=== PATIENT | female | born 1990 | race African-American/Black ===

== ENCOUNTER 2022-10-29 15:51 | Outpatient (CLI) | payer OTHER ==
[2022-10-29 18:22] LABS: BILIRUBIN,URINE NEGATIVE (NEGATIVE); GLUCOSE, URINE (UA) NEGATIVE (NEGATIVE); KETONES,URINE (UA) NEGATIVE (NEGATIVE); LEUKOCYTE ESTERASE, URINE NEGATIVE (NEGATIVE); NITRITE,URINE NEGATIVE (NEGATIVE); OCCULT BLOOD,URINE NEGATIVE (NEGATIVE); PROTEIN,URINE NEGATIVE (NEGATIVE); UROBILINOGEN,URINE 0.2 (NORMAL) E.U./dL (NORMAL)
[2022-10-29 18:28] LABS: CLARITY,URINE CLEAR (CLEAR)
[2022-10-29 18:45] LABS: BACTERIA,URINE Few /HPF (None Seen); RBC,URINE 0-5 /HPF (0-5); SQUAMOUS EPITHELIAL CELL,UR MOD Squamous (<= Few); WBC,URINE 0-3 /HPF (0-5)
[2022-10-29 20:39] LABS: BASOPHILS % (AUTO) 0.2 %; EOSINOPHILS # (AUTO) 0.1 10^3/uL (0.0-0.7); HCT - HEMATOCRIT 36.3 % (37.0-47.0); HGB - HEMOGLOBIN 11.7 g/dL (12.0-16.0); LYMPHOCYTES % (AUTO) 40.8 %; MEAN CORPUSCULAR HEMOGLOBIN 29.3 pg (27.0-31.0); MEAN CORPUSCULAR HGB CONC 32.2 g/dL (32.0-36.0); MEAN PLATELET VOLUME 9.7 fL (7.9-10.8); MONOCYTES # (AUTO) 0.4 10^3/uL (0.0-1.0); MONOCYTES % (AUTO) 8.5 %; NEUTROPHILS # (AUTO) 2.4 10^3/uL (1.5-6.6); NEUTROPHILS % (AUTO) 49.1 %; PLT - PLATELET COUNT 306 10^3/uL (130-450); RED BLOOD COUNT 3.99 10^6/uL (4.20-5.40); RED CELL DISTRIBUTION WIDTH 13.9 % (12.0-15.0); WHITE BLOOD COUNT 4.9 x10^3/uL (4.8-10.8)
[2022-10-31 04:09] LABS: HBsAG SCREEN Negative (Negative); HCV AB <0.1 s/co ratio (0.0-0.9)
[2022-10-31 06:10] LABS: RPR Non Reactive (Non Reactive)
[2022-10-31 07:10] LABS: HIV SCREEN 4TH GENERATION Non Reactive (Non Reactive); VARICELLA-ZOSTER AB IGG 1046 index (Immune >165)
== END 2022-10-29 15:52 | disposition home or self-care (01) ==
LOC: LAB.N 15:51
PROVIDERS: ATTEND Obstetrics & Gynecology
DX: Z34.90 Encounter for supervision of normal pregnancy, unspecified, unspecified trimester (principal)
CPT/HCPCS: 36415; 81001; 85025; 86592; 86762; 86787; 86803; 86850; 86900; 86901; 87086; 87340; 87389

== ENCOUNTER 2022-11-08 16:47 | Outpatient (CLI) | payer OTHER ==
--- NOTE | 2022-11-12 08:56 | Ultrasound Report ---
PROCEDURE: OB First Trimester INDICATIONS: POSITIVE TEST OUTSIDE/PRIOR DATING DATA: Last menstrual period (LMP): 08/05/2022. LMP-based estimated date of delivery (VIANNEY): 05/12/2023. The below data below was generated using the working VIANNEY of 05/04/2023 TECHNIQUE: Real-time scanning was performed of the fetus and maternal pelvic organs, with image documentation. COMPARISON: None. FINDINGS: Single living intrauterine gestation with crown-rump length of 8.4 cm. This corresponds to gestational age of 14 weeks two days. Estimated weight is 102 g, 96th percentile. IMPRESSION: Single living intrauterine gestation with estimated gestational age of 14 weeks two days and estimate d weight at the 96th percentile. Reviewed by: Dalton Aleman MD on 11/12/2022 8:54 AM PST Approved by: Dalton Aleman MD on 11/12/2022 8:54 AM PST Station ID: [id number]
== END 2022-11-08 16:48 | disposition home or self-care (01) ==
LOC: DI 16:47
PROVIDERS: ATTEND Obstetrics & Gynecology
DX: Z34.92 Encounter for supervision of normal pregnancy, unspecified, second trimester (principal); Z3A.14 14 weeks gestation of pregnancy

== ENCOUNTER 2022-11-18 13:00 | Outpatient (CLI) | payer OTHER ==
[2022-11-18 20:16] LABS: CHLAMYDIA TRACHOMATIS DNA NEGATIVE (NEGATIVE); NEISSERIA GONORRHOEAE DNA NEGATIVE (NEGATIVE); TRICHOMONAS VAGINALIS DNA NEGATIVE (NEGATIVE)
== END 2022-11-18 23:59 | disposition home or self-care (01) ==
LOC: LAB 13:00
PROVIDERS: ATTEND Obstetrics & Gynecology
DX: Z11.3 Encounter for screening for infections with a predominantly sexual mode of transmission (principal)
CPT/HCPCS: 87491; 87591; 87661

== ENCOUNTER 2022-12-06 14:12 | Outpatient (CLI) | payer OTHER ==
[2022-12-10 19:07] LABS: AFP MOM See interpretation. (.); AFP VALUE 60.1 ng/mL (.); DIA MOM See interpretation. (.); DIA VALUE 65.64 pg/mL (.); DSR (BY AGE) 1 IN 382 (.); DSR (SECOND TRIMESTER) 1 IN See interpretation. (.); GESTAT. AGE METHOD Ultrasound (.); HCG MOM See interpretation. (.); HCG VALUE 11136 mIU/mL (.); MATERNAL AGE AT EDD 33.8 yr (.); MULTIPLE GESTATION No (.); OPEN SPINA BIFIDA RISK 1 IN See interpretation. (.); RACE Black (.); RESULTS Report (.); TEST RESULTS See interpretation. (.); TRISOMY 18 RISK See interpretation. (.); UE3 MOM See interpretation. (.); UE3 VALUE 2.29 ng/mL (.); WEIGHT 152 lbs (.)
== END 2022-12-06 14:13 | disposition home or self-care (01) ==
LOC: LAB 14:12
PROVIDERS: ATTEND Obstetrics & Gynecology
DX: Z34.90 Encounter for supervision of normal pregnancy, unspecified, unspecified trimester (principal)
CPT/HCPCS: 36415; 81511

== ENCOUNTER 2022-12-18 18:41 | Outpatient (CLI) | payer OTHER ==
--- NOTE | 2022-12-19 15:47 | Ultrasound Report ---
PROCEDURE: OB Detailed Eval INDICATIONS: SUPERVISION OF OUTSIDE/PRIOR DATING DATA: Last menstrual period (LMP): 08/05/2022. LMP-based estimated date of delivery (VIANNEY): 05/12/2023. First dating scan (date and location): 11/08/2022. Estimated date of delivery (VIANNEY) from first dating scan: 05/04/2023. TECHNIQUE: Real-time scanning was performed of the fetus, with image documentation and biometric measurements. COMPARISON: 11/08/2022 FINDINGS: General: A single living intrauterine gestation is present. Presentation: Variable Placenta: Placental position is anterior, without previa. Amniotic fluid index: 16.4 cm, within normal limits for gestational age. LACI measures 4.9 cm heart rate: 152 beats per minute. Maternal cervical canal: 3.7 cm long; normal length is 2.5 cm or more. biometrics: Biparietal diameter: 4.7 cm 20 weeks 1 day Head circumference: 17.5 cm 20 weeks 0 days Abdominal circumference: 16.5 cm 21 weeks 6 days Femur length: 3.3 cm 20 weeks 2 days Estimated gestational age from initial scan: 20 weeks 3 days Composite gestational age from present scan: 20 weeks 2 days Estimated weight and percentile: 379 g 67th percentile Measurement variability in biometric dating: +/- 10 days from 12-20 weeks gestation, +/- 2 weeks from 20-30 weeks gestation, +/- 3 weeks at 30 weeks gestation or later. Anatomic survey: Neuro: Ventricles are normal at less than 10 mm. Cisterna magna is normal at 3-11 mm. Cerebellum i s normal in size and morphology. Nuchal skin fold: Normal at less than 6 mm between 14 and 20 weeks gestational age. Face: Nose and lips, facial profile are normal. Spine: No evidence for spina bifida. Heart: 4-chambered heart is present, with normal ventricular outflow tracts. Diaphragm: Diaphragm is intact. Stomach: Left-sided stomach is present. Kidneys: No hydronephrosis. Normal is less than 5 mm in 2nd trimester, less than 7 mm in 3rd trimester. Cord: 3 vessel cord has orthotopic insertion. Bladder: Normal in size. Extremities: All 4 extremities are visualized. IMPRESSION: Single live intrauterine with ultrasound gestational age today of 20 weeks 2 days. Anatomy is within normal limits. Reviewed by: Pam Mendoza MD on 12/19/2022 3:46 PM PST Approved by: Pam Mendoza MD on 12/19/2022 3:46 PM PST Station ID: [id number]
== END 2022-12-18 18:42 | disposition home or self-care (01) ==
LOC: DI 18:41
PROVIDERS: ATTEND Obstetrics & Gynecology
DX: Z34.92 Encounter for supervision of normal pregnancy, unspecified, second trimester (principal); Z3A.20 20 weeks gestation of pregnancy

== ENCOUNTER 2023-01-31 15:31 | Outpatient (CLI) | payer OTHER ==
[2023-01-31 20:30] LABS: HCT - HEMATOCRIT 37.4 % (37.0-47.0); HGB - HEMOGLOBIN 12.1 g/dL (12.0-16.0); MEAN CORPUSCULAR HEMOGLOBIN 30.6 pg (27.0-31.0); MEAN CORPUSCULAR HGB CONC 32.4 g/dL (32.0-36.0); MEAN CORPUSCULAR VOLUME 94.4 fL (81.0-99.0); RED BLOOD COUNT 3.96 10^6/uL (4.20-5.40); RED CELL DISTRIBUTION WIDTH 12.8 % (12.0-15.0); WHITE BLOOD COUNT 7.8 x10^3/uL (4.8-10.8)
== END 2023-01-31 15:32 | disposition home or self-care (01) ==
LOC: LAB.N 15:31
PROVIDERS: ATTEND Obstetrics & Gynecology
DX: Z34.90 Encounter for supervision of normal pregnancy, unspecified, unspecified trimester (principal)
CPT/HCPCS: 36415; 82950; 85027

== ENCOUNTER 2023-04-18 08:00 | Outpatient (CLI) | payer OTHER | END 2023-04-18 23:59 | disposition home or self-care (01) | LOC: LAB.WC 08:00 | PROVIDERS: ATTEND Obstetrics & Gynecology | DX: Z34.90 Encounter for supervision of normal pregnancy, unspecified, unspecified trimester (principal) | CPT/HCPCS: 87797 ==

== ENCOUNTER 2023-04-21 17:55 | Inpatient (IN) | payer OTHER ==
[2023-04-21] MEDS ORDERED: miSOPROStoL 200 MCG TABLET PR PRN (19:17)
[2023-04-21] MEDS ORDERED: TRANEXAMIC ACID IN NACL 1,000 MG/100 ML BAG IV PRN (19:17)
[2023-04-21] MEDS ORDERED: hydrALAZINE INJ 20 MG/ML VIAL IVP PRN ×2 (19:17)
[2023-04-21] MEDS ORDERED: LABETALOL 20 MG/4 ML SYRINGE IVP PRN ×3 (19:17)
[2023-04-21] MEDS ORDERED: OXYTOCIN/SODIUM CHLORIDE 500 ML IV PRN (19:17)
[2023-04-21] MEDS ORDERED: TERBUTALINE 1 MG/ML VIAL SUBQ PRN (19:17)
[2023-04-21] MEDS ORDERED: OXYTOCIN 10 UNIT/ML VIAL IM PRN (19:17)
[2023-04-21] MEDS ORDERED: fentaNYL 100 MCG/2 ML VIAL IVP PRN (19:17)
[2023-04-21] MEDS ORDERED: CARBOPROST TROMETHAMINE 250 MCG/ML AMP IM PRN (19:17)
[2023-04-21] MEDS ORDERED: SODIUM CHLORIDE FLUSH 0.9% 10 ML SYRINGE IVP PRN (19:17)
[2023-04-21] MEDS ORDERED: NIFEdipine 10 MG CAPSULE PO PRN (19:17)
[2023-04-21] MEDS ORDERED: miSOPROStoL 200 MCG TABLET BC PRN (19:17)
[2023-04-21] MEDS ORDERED: METHYLERGONOVINE 0.2 MG/ML VIAL IM PRN (19:17)
[2023-04-21] MEDS ORDERED: lidocaine 1% 20 ML MDV ID PRN (19:17)
[2023-04-21 19:28] LABS: BASOPHILS % (AUTO) 0.1 %; EOSINOPHILS % (AUTO) 0.1 %; HCT - HEMATOCRIT 40.2 % (37.0-47.0); HGB - HEMOGLOBIN 13.3 g/dL (12.0-16.0); LYMPHOCYTES # (AUTO) 1.8 10^3/uL (1.5-3.5); LYMPHOCYTES % (AUTO) 24.4 %; MEAN CORPUSCULAR HEMOGLOBIN 30.2 pg (27.0-31.0); MEAN CORPUSCULAR HGB CONC 33.1 g/dL (32.0-36.0); MEAN CORPUSCULAR VOLUME 91.2 fL (81.0-99.0); MEAN PLATELET VOLUME 10.3 fL (7.9-10.8); MONOCYTES # (AUTO) 0.6 10^3/uL (0.0-1.0); MONOCYTES % (AUTO) 8.7 %; NEUTROPHILS # (AUTO) 4.8 10^3/uL (1.5-6.6); NEUTROPHILS % (AUTO) 66.3 %; PLT - PLATELET COUNT 334 10^3/uL (130-450); RED BLOOD COUNT 4.41 10^6/uL (4.20-5.40); RED CELL DISTRIBUTION WIDTH 13.2 % (12.0-15.0); WHITE BLOOD COUNT 7.3 x10^3/uL (4.8-10.8)
[2023-04-21 20:05] LABS: ALBUMIN 3.3 g/dL (3.2-5.5); BILIRUBIN,TOTAL 0.5 mg/dL (0.2-1.0); CALCIUM 10.1 mg/dL (8.5-10.3); CREATININE 1.6 mg/dL (0.4-1.0); POTASSIUM 4.4 mmol/L (3.5-5.0); TOTAL PROTEIN 6.7 g/dL (6.7-8.2)
--- NOTE | 2023-04-21 20:19 | HISTORY & PHYSICAL EXAMINATION ---
Admit History - Visit Reason Visit Reason: Contractions, Other (induction for gestational hypertension) - : 3 Parity: 2 Care: positive: [facility] Risk/History: positive: None Complications This : positive: induced HTN Smoking Status: Never smoker - Mother's Labs Mother's Blood Type: positive: O Mother's RH: positive: Positive GBS: positive: Group B Step Negative Rubella Status: positive: Immune (first 2 babies were born in [facility]. uncomplicated and unmedicated. 4 kg and 3.5 kg.) - HPI Diagnosis/Indication for NST: Gestational Hypertension Current EDU 05/05/23 Gestation 38 Weeks and 0 Days 3 Vital Signs Temperature 99.4 F 04/21/23 18:32 Heart Rate 102 H 04/21/23 18:32 Respiratory Rate 16 04/21/23 18:32 Blood Pressure 144/94 H 04/21/23 18:32 Temperature 99.4 F 04/21/23 18:32 Heart Rate 102 H 04/21/23 18:32 Respiratory Rate 16 04/21/23 18:32 Blood Pressure 144/94 H 04/21/23 18:32 O2 Saturation If not protocol: Oxygen Flow, liters/minute Meds/Allgy - Allergies Allergies/Adverse Reactions: Allergies Allergy/AdvReac Type Severity Reaction Status Date / Time No Known Drug Allergies Allergy Verified 04/21/23 18:31 Review of Systems - Other Findings Other Findings: no headache, nausea, vomiting. good movement. no contractions. no leaking of fluid. Physical - Abdominal Exam Vital Signs: Temp Pulse Resp BP Pulse Ox O2 Flow Rate 99.4 F 102 H 16 144/94 H 04/21/23 18:32 04/21/23 18:32 04/21/23 18:32 04/21/23 18:32 Contraction Frequency (min/apart): irreg Contraction Intensity: positive: Mild Uterine Resting Tone: positive: Soft - Monitoring Strip Review: positive: Category I - Presentation Presentation: positive: Vertex - Vaginal Exam Membranes: positive: Membranes intact Dilation (in cm): 4 Effacement (%): 80 Station: positive: Ballotable Cervical Position: positive: Posterior - Speculum Exam Speculum Exam Performed: positive: No Plan for Labor - Plan For Labor Plan for Labor: Admit for gestational hypertension and induction of labor with pitocin. baby is too high for SROM. No signs or sx of Preeclampsia. labs normal. had never had epidural, likely will want natural labor but also has never been induced before. process discussed. consent signed.
[2023-04-21 20:20] LABS: CREATININE,URINE 133.9 mg/dL; PROTEIN/CREATININE RATIO,URINE 0.1 (<=0.2)
[2023-04-21] MEDS ORDERED: LACTATED RINGERS 1,000 ML ONE (20:46)
[2023-04-21] MEDS: LACTATED RINGERS 1,000 ML IV SCH (20:59)
[2023-04-21] MEDS ORDERED: OXYTOCIN/SODIUM CHLORIDE 500 ML IV SCH (21:00)
[2023-04-21] MEDS ORDERED: MAGNESIUM SULFATE 4 GRAM 4 GM/50 ML BAG IV ONE (21:10)
[2023-04-21 22:23] LABS: CREATININE 1.3 mg/dL (0.4-1.0)
[2023-04-21] MEDS: MAGNESIUM SULFATE IN WATER 20 GM/500 ML IV.SOLN IV SCH (23:08)
[2023-04-22 03:15] LABS: ALBUMIN 3.1 g/dL (3.2-5.5); ALBUMIN/GLOBULIN RATIO 0.9 (1.0-2.2); BILIRUBIN,TOTAL 0.7 mg/dL (0.2-1.0); CALCIUM 8.6 mg/dL (8.5-10.3); CREATININE 0.8 mg/dL (0.4-1.0); MAGNESIUM 3.5 mg/dL (1.7-2.8); POTASSIUM 3.8 mmol/L (3.5-5.0); TOTAL PROTEIN 6.4 g/dL (6.7-8.2)
[2023-04-22] MEDS: MAGNESIUM SULFATE IN WATER 20 GM/500 ML IV.SOLN IV SCH ×2 (08:04→17:19)
[2023-04-22] MEDS: SODIUM CHLORIDE FLUSH 0.9% 10 ML SYRINGE IVP SCH (08:04)
[2023-04-22] MEDS: ACETAMINOPHEN 325 MG TABLET PO PRN ×2 (08:20→20:00)
--- NOTE | 2023-04-22 09:28 | PROVIDER PROGRESS NOTE ---
Subjective - Prog Note Date Prog Note Date: 04/22/23 Prog Note Time: 09:26 - Subjective Subjective: More painful with contractions. when asked says that she has a headache and would like some tylenol. magnesium at 1, pitocin at 20, ivf at 50. had some nausea after I broke her water but did not vomit. Objective - Vital Signs/Intake & Output Reviewed Vital Signs: Yes Intake & Output: Intake & Output 04/19/23 04/20/23 04/21/23 04/22/23 23:59 23:59 23:59 23:59 Intake Total 156.366 897.501 Output Total 300 781 Balance -143.634 116.501 - Objective Comments/Other: cervix /-1. baby's head is way down since I checked her last night. AROM and clear fluid. - Lab Results Fish Bones: 04/21/23 18:25 04/22/23 02:57 Other Labs: Lab Results x24hrs 04/22/23 04/21/23 04/21/23 Range/Units 02:57 21:30 19:48 WBC (4.8-10.8) x10^3/uL RBC (4.20-5.40) 10^6/uL Hgb (12.0-16.0) g/dL Hct (37.0-47.0) % MCV (81.0-99.0) fL MCH (27.0-31.0) pg MCHC (32.0-36.0) g/dL RDW (12.0-15.0) % Plt Count (130-450) 10^3/uL MPV (7.9-10.8) fL Neut # (Auto) (1.5-6.6) 10^3/uL Lymph # (Auto) (1.5-3.5) 10^3/uL [place] # (Auto) (0.0-1.0) 10^3/uL Eos # (Auto) (0.0-0.7) 10^3/uL Baso # (Auto) (0.0-0.1) 10^3/uL Absolute Nucleated RBC x10^3/uL Nucleated RBC % /100WBC Sodium 136 136 (135-145) mmol/L Potassium 3.8 4.4 (3.5-5.0) mmol/L Chloride 103 105 (101-111) mmol/L Carbon Dioxide 20 L 22 (21-32) mmol/L Anion Gap 13.0 9.0 (6-13) BUN 13 13 (6-20) mg/dL Creatinine 0.8 1.3 H 1.6 H (0.4-1.0) mg/dL Estimated GFR (MDRD) 100 57 L 45 L (>89) Glucose 99 108 H (70-100) mg/dL Calcium 8.6 10.1 (8.5-10.3) mg/dL Magnesium 3.5 H (1.7-2.8) mg/dL Total Bilirubin 0.7 0.5 (0.2-1.0) mg/dL AST 18 20 (10-42) IU/L ALT 16 14 (10-60) IU/L Alkaline Phosphatase 101 104 (42-121) IU/L Total Protein 6.4 L 6.7 (6.7-8.2) g/dL Albumin 3.1 L 3.3 (3.2-5.5) g/dL Globulin 3.3 3.4 (2.1-4.2) g/dL Albumin/Globulin Ratio 0.9 L 1.0 (1.0-2.2) Urine Creatinine mg/dL Ur Total Protein Timed mg/dL Protein/Creatinin Ratio (<=0.2) Blood Type Antibody Screen 04/21/23 04/21/23 04/21/23 Range/Units 18:30 18:25 18:25 WBC 7.3 (4.8-10.8) x10^3/uL RBC 4.41 (4.20-5.40) 10^6/uL Hgb 13.3 (12.0-16.0) g/dL Hct 40.2 (37.0-47.0) % MCV 91.2 (81.0-99.0) fL MCH 30.2 (27.0-31.0) pg MCHC 33.1 (32.0-36.0) g/dL RDW 13.2 (12.0-15.0) % Plt Count 334 (130-450) 10^3/uL MPV 10.3 (7.9-10.8) fL Neut # (Auto) 4.8 (1.5-6.6) 10^3/uL Lymph # (Auto) 1.8 (1.5-3.5) 10^3/uL [place] # (Auto) 0.6 (0.0-1.0) 10^3/uL Eos # (Auto) 0.0 (0.0-0.7) 10^3/uL Baso # (Auto) 0.0 (0.0-0.1) 10^3/uL Absolute Nucleated RBC 0.00 x10^3/uL Nucleated RBC % 0.0 /100WBC Sodium (135-145) mmol/L Potassium (3.5-5.0) mmol/L Chloride (101-111) mmol/L Carbon Dioxide (21-32) mmol/L Anion Gap (6-13) BUN (6-20) mg/dL Creatinine (0.4-1.0) mg/dL Estimated GFR (MDRD) (>89) Glucose (70-100) mg/dL Calcium (8.5-10.3) mg/dL Magnesium (1.7-2.8) mg/dL Total Bilirubin (0.2-1.0) mg/dL AST (10-42) IU/L ALT (10-60) IU/L Alkaline Phosphatase (42-121) IU/L Total Protein (6.7-8.2) g/dL Albumin (3.2-5.5) g/dL Globulin (2.1-4.2) g/dL Albumin/Globulin Ratio (1.0-2.2) Urine Creatinine 133.9 mg/dL Ur Total Protein Timed 8 mg/dL Protein/Creatinin Ratio 0.1 (<=0.2) Blood Type O POSITIVE Antibody Screen NEGATIVE Assessment/Plan - Problem List (1) Preeclampsia, severe Impression: patient's bps are stable and not elevated. creatinine has come down with hydration for 1.6 to 0.8. very unusual. will continue magnesium at 1 gm/hr and continue with induction. baby's tracing is category 1. acels and no decels. low end of moderate variability, consistent with being on magnesium. great response to scalp stim. pitocin decreased for 20 to 10 with AROM. will adjust as needed for contraction frequency. I think likely we will need to go down further. Qualifiers: Trimester: third trimester Qualified Code(s): O14.13 - Severe pre- eclampsia, third trimester
[2023-04-22] MEDS ORDERED: LACTATED RINGERS 500 ML IV ONE (09:48)
--- NOTE | 2023-04-22 09:48 | PROVIDER PROGRESS NOTE ---
Subjective - Subjective Subjective: ready for epidural. painful with contractions. has not had one before. Objective - Vital Signs/Intake & Output Intake & Output: Intake & Output 04/19/23 04/20/23 04/21/23 04/22/23 23:59 23:59 23:59 23:59 Intake Total 156.366 962.334 Output Total 300 781 Balance -143.634 181.334 - Lab Results Fish Bones: 04/21/23 18:25 04/22/23 02:57 Other Labs: Lab Results x24hrs 04/22/23 04/21/23 04/21/23 Range/Units 02:57 21:30 19:48 WBC (4.8-10.8) x10^3/uL RBC (4.20-5.40) 10^6/uL Hgb (12.0-16.0) g/dL Hct (37.0-47.0) % MCV (81.0-99.0) fL MCH (27.0-31.0) pg MCHC (32.0-36.0) g/dL RDW (12.0-15.0) % Plt Count (130-450) 10^3/uL MPV (7.9-10.8) fL Neut # (Auto) (1.5-6.6) 10^3/uL Lymph # (Auto) (1.5-3.5) 10^3/uL [place] # (Auto) (0.0-1.0) 10^3/uL Eos # (Auto) (0.0-0.7) 10^3/uL Baso # (Auto) (0.0-0.1) 10^3/uL Absolute Nucleated RBC x10^3/uL Nucleated RBC % /100WBC Sodium 136 136 (135-145) mmol/L Potassium 3.8 4.4 (3.5-5.0) mmol/L Chloride 103 105 (101-111) mmol/L Carbon Dioxide 20 L 22 (21-32) mmol/L Anion Gap 13.0 9.0 (6-13) BUN 13 13 (6-20) mg/dL Creatinine 0.8 1.3 H 1.6 H (0.4-1.0) mg/dL Estimated GFR (MDRD) 100 57 L 45 L (>89) Glucose 99 108 H (70-100) mg/dL Calcium 8.6 10.1 (8.5-10.3) mg/dL Magnesium 3.5 H (1.7-2.8) mg/dL Total Bilirubin 0.7 0.5 (0.2-1.0) mg/dL AST 18 20 (10-42) IU/L ALT 16 14 (10-60) IU/L Alkaline Phosphatase 101 104 (42-121) IU/L Total Protein 6.4 L 6.7 (6.7-8.2) g/dL Albumin 3.1 L 3.3 (3.2-5.5) g/dL Globulin 3.3 3.4 (2.1-4.2) g/dL Albumin/Globulin Ratio 0.9 L 1.0 (1.0-2.2) Urine Creatinine mg/dL Ur Total Protein Timed mg/dL Protein/Creatinin Ratio (<=0.2) Blood Type Antibody Screen 04/21/23 04/21/23 04/21/23 Range/Units 18:30 18:25 18:25 WBC 7.3 (4.8-10.8) x10^3/uL RBC 4.41 (4.20-5.40) 10^6/uL Hgb 13.3 (12.0-16.0) g/dL Hct 40.2 (37.0-47.0) % MCV 91.2 (81.0-99.0) fL MCH 30.2 (27.0-31.0) pg MCHC 33.1 (32.0-36.0) g/dL RDW 13.2 (12.0-15.0) % Plt Count 334 (130-450) 10^3/uL MPV 10.3 (7.9-10.8) fL Neut # (Auto) 4.8 (1.5-6.6) 10^3/uL Lymph # (Auto) 1.8 (1.5-3.5) 10^3/uL [place] # (Auto) 0.6 (0.0-1.0) 10^3/uL Eos # (Auto) 0.0 (0.0-0.7) 10^3/uL Baso # (Auto) 0.0 (0.0-0.1) 10^3/uL Absolute Nucleated RBC 0.00 x10^3/uL Nucleated RBC % 0.0 /100WBC Sodium (135-145) mmol/L Potassium (3.5-5.0) mmol/L Chloride (101-111) mmol/L Carbon Dioxide (21-32) mmol/L Anion Gap (6-13) BUN (6-20) mg/dL Creatinine (0.4-1.0) mg/dL Estimated GFR (MDRD) (>89) Glucose (70-100) mg/dL Calcium (8.5-10.3) mg/dL Magnesium (1.7-2.8) mg/dL Total Bilirubin (0.2-1.0) mg/dL AST (10-42) IU/L ALT (10-60) IU/L Alkaline Phosphatase (42-121) IU/L Total Protein (6.7-8.2) g/dL Albumin (3.2-5.5) g/dL Globulin (2.1-4.2) g/dL Albumin/Globulin Ratio (1.0-2.2) Urine Creatinine 133.9 mg/dL Ur Total Protein Timed 8 mg/dL Protein/Creatinin Ratio 0.1 (<=0.2) Blood Type O POSITIVE Antibody Screen NEGATIVE Assessment/Plan - Problem List (1) Preeclampsia, severe Impression: epidural for pain management. will given 500 cc bolus to prevent bp drops. seems that her fluid status will do fine with that right now. only on 1 mg/hr of magnesium. Qualifiers: Trimester: third trimester Qualified Code(s): O14.13 - Severe pre- eclampsia, third trimester
[2023-04-22] MEDS ORDERED: LABETALOL 20 MG/4 ML SYRINGE IVP PRN ×3 (10:46)
[2023-04-22] MEDS ORDERED: NIFEdipine 10 MG CAPSULE PO PRN (10:46)
[2023-04-22] MEDS ORDERED: ONDANSETRON 4 MG/2 ML VIAL IVP PRN (10:46)
[2023-04-22] MEDS ORDERED: diphenhydrAMINE 25 MG CAPSULE PO PRN (10:46)
[2023-04-22] MEDS ORDERED: ONDANSETRON ODT 4 MG TABLET TL PRN (10:46)
[2023-04-22] MEDS ORDERED: hydrALAZINE INJ 20 MG/ML VIAL IVP PRN ×2 (10:46)
[2023-04-22] MEDS ORDERED: ONDANSETRON 4 MG/2 ML VIAL ONE (10:49)
--- NOTE | 2023-04-22 10:56 | DELIVERY NOTE ---
Delivery Note - Labor Labor: positive: Augmented by ARM, Induced by oxytocin - Delivery Method Infant Delivery Method: positive: Spontaneous vaginal delivery - Presentation Presentation: positive: Vertex, JAZMÍN - left occiput anterior - Nuchal Cord Nuchal Cord: positive: Present, Reduced - Anesthetic Anesthetic Type: Anesthetic: positive: Lidocaine - 1% plain (for perineal repair.) Volume: positive: Other (15 cc) - Amniotic Fluid Description Amniotic Fluid Description: positive: Clear - Episiotomy Type Episiotomy Type: positive: None - Laceration Laceration: positive: 2nd degree, Perineal - Suture Suture Type: positive: Vicryl Suture Size: positive: 3-0 - Delivery Outcome Delivery Outcome: positive: Livebirth - [place]: positive: Placed in direct skin contact with mother, Bulb syringe [place] sex: positive: Male - Cord Cord: positive: 3 vessels - Placenta Placenta: positive: Intact, Spontaneous - Estimated Blood Loss Estimated Blood Loss (in cc): 100 - Post Delivery Events Post Delivery Events: positive: No post delivery events - Delivery Comments (Free Text/Narrative) Delivery Comments (Free Text/Narrative): Induced for preeclampsia. bps up in clinic and here. Creatinine 1.6 on admit then down 1.3 and then to 0.8 at 0300. Magnesium started for seizure prophylaxis. Pitocin started for induction. Initially cervix was about 4 cm and baby's head was very high, not at all engaged. this morning had come down to -1 station and AROM was done, clear fluid. Pitocin was 20, turned to 10 and then 5. Patient decided she wanted an epidural and then as she was signing consent, felt ready to push and baby's head was . Baby's head delivered with one push. Cord around neck once, reduced. baby's right hand come out before left shoulder. then rest of baby delivered and was put on mom's belly. Baby did not cry much but was healthy. Apgars 8/9. Placenta delivered spontaneously, intact, some calcifications. 2nd degree perineal laceration repaired wt 3-0 vicryl rapide in 2 layers after injected with 1% Lidocaine. Tolerated everything well. EBL about 100 cc. no complications.
[2023-04-22] MEDS ORDERED: LACTATED RINGERS 1,000 ML IV SCH (11:00)
[2023-04-22 11:06] LABS: BASOPHILS % (AUTO) 0.1 %; EOSINOPHILS % (AUTO) 0.4 %; HCT - HEMATOCRIT 42.3 % (37.0-47.0); HGB - HEMOGLOBIN 13.8 g/dL (12.0-16.0); LYMPHOCYTES % (AUTO) 13.6 %; MEAN CORPUSCULAR HEMOGLOBIN 30.7 pg (27.0-31.0); MEAN CORPUSCULAR HGB CONC 32.6 g/dL (32.0-36.0); MEAN CORPUSCULAR VOLUME 94.2 fL (81.0-99.0); MEAN PLATELET VOLUME 9.7 fL (7.9-10.8); MONOCYTES # (AUTO) 0.5 10^3/uL (0.0-1.0); MONOCYTES % (AUTO) 6.3 %; NEUTROPHILS % (AUTO) 79.1 %; PLT - PLATELET COUNT 305 10^3/uL (130-450); RED BLOOD COUNT 4.49 10^6/uL (4.20-5.40); RED CELL DISTRIBUTION WIDTH 13.1 % (12.0-15.0); WHITE BLOOD COUNT 7.6 x10^3/uL (4.8-10.8)
[2023-04-22] MEDS: IBUPROFEN 600 MG TABLET PO SCH ×3 (11:12→19:59)
[2023-04-22 11:20] LABS: ALBUMIN 3.3 g/dL (3.2-5.5); BILIRUBIN,TOTAL 0.6 mg/dL (0.2-1.0); CALCIUM 8.1 mg/dL (8.5-10.3); CREATININE 0.7 mg/dL (0.4-1.0); MAGNESIUM 3.9 mg/dL (1.7-2.8); POTASSIUM 4.2 mmol/L (3.5-5.0); TOTAL PROTEIN 6.6 g/dL (6.7-8.2)
--- NOTE | 2023-04-22 11:24 | PROVIDER PROGRESS NOTE ---
Objective - Vital Signs/Intake & Output Vital Signs: Vital Signs x48h Pulse Resp BP 04/22/23 10:48 94 16 140/91 H 04/22/23 10:31 99 152/98 H 04/22/23 10:22 106 H 18 151/100 H Intake & Output: Intake & Output 04/19/23 04/20/23 04/21/23 04/22/23 23:59 23:59 23:59 23:59 Intake Total 307.832 7159.834 Output Total 300 781 Balance -143.634 684.834 - Lab Results Fish Bones: 04/22/23 11:02 04/22/23 11:02 Other Labs: Lab Results x24hrs 04/22/23 04/22/23 04/22/23 Range/Units 11:02 11:02 02:57 WBC 7.6 (4.8-10.8) x10^3/uL RBC 4.49 (4.20-5.40) 10^6/uL Hgb 13.8 (12.0-16.0) g/dL Hct 42.3 (37.0-47.0) % MCV 94.2 (81.0-99.0) fL MCH 30.7 (27.0-31.0) pg MCHC 32.6 (32.0-36.0) g/dL RDW 13.1 (12.0-15.0) % Plt Count 305 (130-450) 10^3/uL MPV 9.7 (7.9-10.8) fL Neut # (Auto) 6.0 (1.5-6.6) 10^3/uL Lymph # (Auto) 1.0 L (1.5-3.5) 10^3/uL [place] # (Auto) 0.5 (0.0-1.0) 10^3/uL Eos # (Auto) 0.0 (0.0-0.7) 10^3/uL Baso # (Auto) 0.0 (0.0-0.1) 10^3/uL Absolute Nucleated RBC 0.00 x10^3/uL Nucleated RBC % 0.0 /100WBC Sodium 134 L 136 (135-145) mmol/L Potassium 4.2 3.8 (3.5-5.0) mmol/L Chloride 101 103 (101-111) mmol/L Carbon Dioxide 21 20 L (21-32) mmol/L Anion Gap 12.0 13.0 (6-13) BUN 10 13 (6-20) mg/dL Creatinine 0.7 0.8 (0.4-1.0) mg/dL Estimated GFR (MDRD) 117 100 (>89) Glucose 140 H 99 (70-100) mg/dL Calcium 8.1 L 8.6 (8.5-10.3) mg/dL Magnesium 3.9 H 3.5 H (1.7-2.8) mg/dL Total Bilirubin 0.6 0.7 (0.2-1.0) mg/dL AST 19 18 (10-42) IU/L ALT 15 16 (10-60) IU/L Alkaline Phosphatase 104 101 (42-121) IU/L Total Protein 6.6 L 6.4 L (6.7-8.2) g/dL Albumin 3.3 3.1 L (3.2-5.5) g/dL Globulin 3.3 3.3 (2.1-4.2) g/dL Albumin/Globulin Ratio 1.0 0.9 L (1.0-2.2) Urine Creatinine mg/dL Ur Total Protein Timed mg/dL Protein/Creatinin Ratio (<=0.2) Blood Type Antibody Screen 04/21/23 04/21/23 04/21/23 Range/Units 21:30 19:48 18:30 WBC (4.8-10.8) x10^3/uL RBC (4.20-5.40) 10^6/uL Hgb (12.0-16.0) g/dL Hct (37.0-47.0) % MCV (81.0-99.0) fL MCH (27.0-31.0) pg MCHC (32.0-36.0) g/dL RDW (12.0-15.0) % Plt Count (130-450) 10^3/uL MPV (7.9-10.8) fL Neut # (Auto) (1.5-6.6) 10^3/uL Lymph # (Auto) (1.5-3.5) 10^3/uL [place] # (Auto) (0.0-1.0) 10^3/uL Eos # (Auto) (0.0-0.7) 10^3/uL Baso # (Auto) (0.0-0.1) 10^3/uL Absolute Nucleated RBC x10^3/uL Nucleated RBC % /100WBC Sodium 136 (135-145) mmol/L Potassium 4.4 (3.5-5.0) mmol/L Chloride 105 (101-111) mmol/L Carbon Dioxide 22 (21-32) mmol/L Anion Gap 9.0 (6-13) BUN 13 (6-20) mg/dL Creatinine 1.3 H 1.6 H (0.4-1.0) mg/dL Estimated GFR (MDRD) 57 L 45 L (>89) Glucose 108 H (70-100) mg/dL Calcium 10.1 (8.5-10.3) mg/dL Magnesium (1.7-2.8) mg/dL Total Bilirubin 0.5 (0.2-1.0) mg/dL AST 20 (10-42) IU/L ALT 14 (10-60) IU/L Alkaline Phosphatase 104 (42-121) IU/L Total Protein 6.7 (6.7-8.2) g/dL Albumin 3.3 (3.2-5.5) g/dL Globulin 3.4 (2.1-4.2) g/dL Albumin/Globulin Ratio 1.0 (1.0-2.2) Urine Creatinine 133.9 mg/dL Ur Total Protein Timed 8 mg/dL Protein/Creatinin Ratio 0.1 (<=0.2) Blood Type Antibody Screen 04/21/23 04/21/23 Range/Units 18:25 18:25 WBC 7.3 (4.8-10.8) x10^3/uL RBC 4.41 (4.20-5.40) 10^6/uL Hgb 13.3 (12.0-16.0) g/dL Hct 40.2 (37.0-47.0) % MCV 91.2 (81.0-99.0) fL MCH 30.2 (27.0-31.0) pg MCHC 33.1 (32.0-36.0) g/dL RDW 13.2 (12.0-15.0) % Plt Count 334 (130-450) 10^3/uL MPV 10.3 (7.9-10.8) fL Neut # (Auto) 4.8 (1.5-6.6) 10^3/uL Lymph # (Auto) 1.8 (1.5-3.5) 10^3/uL [place] # (Auto) 0.6 (0.0-1.0) 10^3/uL Eos # (Auto) 0.0 (0.0-0.7) 10^3/uL Baso # (Auto) 0.0 (0.0-0.1) 10^3/uL Absolute Nucleated RBC 0.00 x10^3/uL Nucleated RBC % 0.0 /100WBC Sodium (135-145) mmol/L Potassium (3.5-5.0) mmol/L Chloride (101-111) mmol/L Carbon Dioxide (21-32) mmol/L Anion Gap (6-13) BUN (6-20) mg/dL Creatinine (0.4-1.0) mg/dL Estimated GFR (MDRD) (>89) Glucose (70-100) mg/dL Calcium (8.5-10.3) mg/dL Magnesium (1.7-2.8) mg/dL Total Bilirubin (0.2-1.0) mg/dL AST (10-42) IU/L ALT (10-60) IU/L Alkaline Phosphatase (42-121) IU/L Total Protein (6.7-8.2) g/dL Albumin (3.2-5.5) g/dL Globulin (2.1-4.2) g/dL Albumin/Globulin Ratio (1.0-2.2) Urine Creatinine mg/dL Ur Total Protein Timed mg/dL Protein/Creatinin Ratio (<=0.2) Blood Type O POSITIVE Antibody Screen NEGATIVE Assessment/Plan - Problem List (1) Preeclampsia, severe Impression: labs after delivery reviewed. magnesium 3.9. creatinine down to 0.7. continue with magnesium at 1 gm/hr. Qualifiers: Trimester: third trimester Qualified Code(s): O14.13 - Severe pre- eclampsia, third trimester (3) Vaginal delivery with potential for hemorrhage Impression: On magnesium, pitocin had been up to 20 mu. did great. minimal bleeding.
[2023-04-22 11:30] LABS: URIC ACID 5.1 mg/dL (2.6-7.2)
[2023-04-22] MEDS: LACTATED RINGERS 1,000 ML IV SCH (17:19)
[2023-04-22] MEDS ORDERED: DOCUSATE SODIUM 100 MG CAPSULE PO SCH (21:00)
[2023-04-22 22:34] LABS: BASOPHILS % (AUTO) 0.2 %; EOSINOPHILS # (AUTO) 0.1 10^3/uL (0.0-0.7); EOSINOPHILS % (AUTO) 0.6 %; HCT - HEMATOCRIT 37.8 % (37.0-47.0); HGB - HEMOGLOBIN 12.4 g/dL (12.0-16.0); LYMPHOCYTES # (AUTO) 1.6 10^3/uL (1.5-3.5); LYMPHOCYTES % (AUTO) 15.8 %; MEAN CORPUSCULAR HEMOGLOBIN 30.2 pg (27.0-31.0); MEAN CORPUSCULAR HGB CONC 32.8 g/dL (32.0-36.0); MEAN PLATELET VOLUME 9.4 fL (7.9-10.8); MONOCYTES # (AUTO) 0.8 10^3/uL (0.0-1.0); MONOCYTES % (AUTO) 8.5 %; NEUTROPHILS # (AUTO) 7.4 10^3/uL (1.5-6.6); NEUTROPHILS % (AUTO) 74.5 %; PLT - PLATELET COUNT 299 10^3/uL (130-450); RED BLOOD COUNT 4.11 10^6/uL (4.20-5.40); RED CELL DISTRIBUTION WIDTH 12.9 % (12.0-15.0); WHITE BLOOD COUNT 9.9 x10^3/uL (4.8-10.8)
[2023-04-22 22:46] LABS: ALBUMIN 2.8 g/dL (3.2-5.5); BILIRUBIN,TOTAL 0.4 mg/dL (0.2-1.0); CALCIUM 8.3 mg/dL (8.5-10.3); CREATININE 0.8 mg/dL (0.4-1.0); MAGNESIUM 3.9 mg/dL (1.7-2.8); POTASSIUM 3.9 mmol/L (3.5-5.0); TOTAL PROTEIN 5.7 g/dL (6.7-8.2)
[2023-04-23] MEDS: ACETAMINOPHEN 325 MG TABLET PO PRN (00:57)
[2023-04-23] MEDS: IBUPROFEN 600 MG TABLET PO SCH (02:04)
[2023-04-23] MEDS: LACTATED RINGERS 1,000 ML IV SCH (06:33)
[2023-04-23 14:01] LABS: BASOPHILS % (AUTO) 0.1 %; EOSINOPHILS # (AUTO) 0.1 10^3/uL (0.0-0.7); HCT - HEMATOCRIT 37.8 % (37.0-47.0); HGB - HEMOGLOBIN 12.3 g/dL (12.0-16.0); LYMPHOCYTES # (AUTO) 1.9 10^3/uL (1.5-3.5); LYMPHOCYTES % (AUTO) 23.9 %; MEAN CORPUSCULAR HEMOGLOBIN 30.4 pg (27.0-31.0); MEAN CORPUSCULAR HGB CONC 32.5 g/dL (32.0-36.0); MEAN CORPUSCULAR VOLUME 93.6 fL (81.0-99.0); MEAN PLATELET VOLUME 9.2 fL (7.9-10.8); MONOCYTES # (AUTO) 0.5 10^3/uL (0.0-1.0); MONOCYTES % (AUTO) 6.6 %; NEUTROPHILS # (AUTO) 5.4 10^3/uL (1.5-6.6); NEUTROPHILS % (AUTO) 68.1 %; PLT - PLATELET COUNT 307 10^3/uL (130-450); RED BLOOD COUNT 4.04 10^6/uL (4.20-5.40); RED CELL DISTRIBUTION WIDTH 13.1 % (12.0-15.0); WHITE BLOOD COUNT 7.9 x10^3/uL (4.8-10.8)
[2023-04-23 14:14] LABS: BILIRUBIN,TOTAL 0.4 mg/dL (0.2-1.0); CALCIUM 8.5 mg/dL (8.5-10.3); CREATININE 0.7 mg/dL (0.4-1.0); POTASSIUM 3.9 mmol/L (3.5-5.0); TOTAL PROTEIN 6.1 g/dL (6.7-8.2)
--- NOTE | 2023-04-23 15:08 | Discharge Plan ---
Discharge Plan Problem Reviewed?: Yes Disposition: Home, Self Care Condition: Good Diet: Regular Activity Restrictions: Activity as Tolerated Shower Restrictions: No Driving Restrictions: No Weight Bearing: Full Weight Instruction Topics: Vaginal After, Preeclampsia Additional Instructions or Follow Up instructions: Follow No Smoking: If you smoke, Please STOP! Call for help. Follow-up with: Maria Isabel Erazo DO [Primary Care Provider] -
[2023-04-23 16:28] VITALS: BP 131/77
--- NOTE | 2023-04-23 20:17 | Labor Flowsheet ---
Labor Flowsheet Datetime Report Generated by CPN: 04/23/2023 20:16 Datetime: 04/23/2023 15:56 VITAL SIGNS NBP Sys/Yee/Mean (mmHg): 131 : 77 : 85 Pulse: 86 LaborFlag: Labor Datetime: 04/22/2023 18:00 SpO2 (%): 98 Datetime: 04/22/2023 12:03 I/O Interventions: Up to BR Datetime: 04/22/2023 10:45 Antiemetics/Antacids: Zofran (mg) @ 4 Datetime: 04/22/2023 10:28 Stage 2 Comments: repair started Datetime: 04/22/2023 10:17 Comments: no FHR tracing, baby delivered while mom sat up for epidural COMMUNICATION Communication: Call/Page Placed to Provider Provider Notified (Name): Dr. Be Communication Comments: Per Sara, crane hoist or lift operator, trouble clerk requested to proceed to Hospital for expe cted delivery Datetime: 04/22/2023 10:15 VAGINAL EXAM Dilatation (cm): 10.0 Effacement (%): 100 Station: 3 Exam by: Janene Brown, RN STAGE 2 Pushing: Involuntary Pushing Pushing Progress: Descent with Pushing; with Pushing Datetime: 04/22/2023 10:00 UTERINE ACTIVITY Monitor Mode: External Frequency (min): 2-3 Quality: Moderate Duration (sec): 60-90 Pattern: Normal: <= 5 Contractions in 10 Minutes Resting Tone (Palpate): Relaxed ASSESSMENT A Monitor Mode: External US FHR Baseline Rate : 125 FHR Baseline Changes: No Baseline Change Variability: Moderate 6-25 bpm Accelerations: 15X15 Decelerations: None Category: Category I ANESTHESIA Epidural Positioning: Sitting Datetime: 04/22/2023 09:34 Anesthesia Comments: M. Aube contacted via phone for epidural. Datetime: 04/22/2023 09:33 PATIENT CARE IV/Blood Work: IV Bolus Given ml @ 500- per Dr. Saleem Datetime: 04/22/2023 09:17 Membrane Status: Ruptured Membranes Rupture Method: Artificial Amniotic Fluid Color: Clear Amniotic Fluid Amount: Moderate Cervix, Consistency: Moderate Cervix, Position: Midposition Datetime: 04/22/2023 09:05 MEDICATIONS Pitocin (milliunits): Increased to @ 20 mu/min Datetime: 04/22/2023 09:02 Stage of : Labor Datetime: 04/22/2023 09:01 PRE-INDUCTION CHECKLIST Orders on Chart: Yes H Record Available: Yes Indication Charted: Yes Adequate Pelvis Charted: Yes EFW Documented: Yes Gestational Age Documented: Yes Consent Signed and on Chart: Yes Provider with C/S Priv Aware: Yes Status of Cervix Documented: Yes Presentation Documented: Yes 30min of Monitoring Prior: Yes 2 Accels of 15X15 Present: Yes No Late Decels Present: Yes Less than 2 Variable Decels: Yes Pt Meets Criteria for Induction: Yes Datetime: 04/22/2023 08:53 Membranes Ruptured Date/Time: 04/22/2023 09:17 Amniotic Fluid Odor: Normal Datetime: 04/22/2023 08:39 Patient Care Comments: bedside commode Datetime: 04/22/2023 08:31 Monitor Interventions for UA: [place] Adjusted Monitor Interventions for FHR: Ultrasound Adjusted Datetime: 04/22/2023 08:20 Analgesics/Sedatives: Tylenol (mg) @ 650mg Datetime: 04/22/2023 07:10 Patient Position/Activity: High Fowlers Datetime: 04/22/2023 06:46 Vital Sign Comments: Lateral up Datetime: 04/22/2023 06:15 Pitocin Checklist: At Least 1 Acceleration of 15 bpm x 15 Seconds in 30 Minutes or Adequate Variabi lity; No More than 1 Late Deceleration Occurred in Past 30 Minutes; No More than 2 Variable Decelerat ions > 60 Seconds in Duration and decreasing >60 bpm in 30 minutes; No More than 5 Uterine Contractio ns in 10 Minutes for any 20 Minute Interval; Uterus Palpates Soft between Contractions Datetime: 04/22/2023 06:02 MATERNAL ASSESSMENT Level of Consciousness: Alert DTR's/Clonus: DTRs 1+ Headache: Denies RUQ Epigastric Pain: Denies Datetime: 04/22/2023 05:00 Actions for Decelerations: Other Datetime: 04/22/2023 04:37 Contraction Comments: US batery . Monitors swapped out Datetime: 04/22/2023 03:03 Nausea/Vomiting: Denies Datetime: 04/22/2023 02:35 Respirations: 20 Datetime: 04/22/2023 01:05 Temperature (C): 37.0 Datetime: 04/21/2023 23:09 Magnesium/Antihypertensives: Magnesium Sulfate IV (Gm/hr) @ 1 Datetime: 04/21/2023 23:01 Maternal Comments: Nebo hot and flushed for a few moments. But self resolved Datetime: 04/21/2023 22:41 Breath Sounds, Left: Clear and Equal Breath Sounds, Right: Clear and Equal Datetime: 04/21/2023 22:38 Notification Reason: Lab/Diagnostic Study; Other Datetime: 04/21/2023 21:45 Provider Reviewed Strip: No
--- NOTE | 2023-04-23 21:01 | DISCHARGE SUMMARY ---
Discharge Summary Admit Date: 04/21/23 Discharge Date: 04/23/23 Discharging Provider: Maria Isabel Erazo DO Code Status: Attempt Resuscitation Condition at Discharge: Good Discharge Disposition: 01 Home, Self Care Discharge Facility Name: [facility] - DIAGNOSES Admission Diagnoses: Severe preeclampsia 38 weeks - HPI History of Present Illness: 32yo at 38w admitted for IOL for gestational hypertension diagnosed during office visit earlier that day. care uncomplicated, at [facility]. - HOSPITAL COURSE Hospital Course: 32yo at 38w admitted for IOL for gestational hypertension diagnosed during office visit 04/21 earlier that day. care uncomplicated, at [facility]. BP elevated 140/90s. Labs on admission significant for elevated creatinine 1.6. She was then diagnosed with preeclampsia and started on magnesium sulfate. IOL started with Pitocin. Then AROM. See delivery noted for uncomplicated on 04/22. Creatinine elevated, resolved prior to delivery. Elevated Cr may have been due to dehydration or renal injury vs preeclampsia. Magnesium was continued and discontinued PPD#1. She is recovering well. Appropriate lochia. . Mood is good. Reviewed care. She would like to go home PPD#1. Labs rechecked PPD#1 and still benign, normotensive and asymptomatic. Discharge to home. - ALLERGIES Allergies/Adverse Reactions: Allergies Allergy/AdvReac Type Severity Reaction Status Date / Time No Known Drug Allergies Allergy Verified 04/21/23 18:31 - PHYSICAL EXAM AT DISCHARGE General Appearance: positive: No acute distress Eyes Bilateral: positive: EOMI Respiratory: positive: No respiratory distress Abdomen: positive: Non-tender Skin: positive: Color nml Extremities: positive: Non-tender Neurologic/Psychiatric: positive: Oriented x3 - LABS Result Diagrams: 04/23/23 13:55 04/23/23 13:55 - QUALITY (Female Hip Fx Only) Was patient sent home on osteoporosis medication?: No - FOLLOW UP Follow Up: Follow up 04/29 1415 - TIME SPENT Time Spent in Discharge (Minutes): 25
== END 2023-04-23 20:07 | disposition home or self-care (01) | DRG 807 ==
LOC: WFO 17:55 → FBP 17:57 → WFO 19:16 → FBP 19:17
PROVIDERS: ADMIT Obstetrics & Gynecology; ATTEND Obstetrics & Gynecology
PROC: 10907ZC Drainage of Amniotic Fluid, Therapeutic from Products of Conception, Via Natural or Artificial Opening (ICD-10-PCS; 2023-04-21)
PROC: 3E033VJ Introduction of Other Hormone into Peripheral Vein, Percutaneous Approach (ICD-10-PCS; 2023-04-21)
PROC: 0KQM0ZZ Repair Perineum Muscle, Open Approach (ICD-10-PCS; principal; 2023-04-22)
PROC: 10E0XZZ Delivery of Products of Conception, External Approach (ICD-10-PCS; 2023-04-22)
DX: O14.14 Severe pre-eclampsia complicating childbirth (principal); Z37.0 Single live birth; O70.1 Second degree perineal laceration during delivery; Z3A.38 38 weeks gestation of pregnancy; O75.89 Other specified complications of labor and delivery; R79.89 Other specified abnormal findings of blood chemistry; O69.81X0 Labor and delivery complicated by cord around neck, without compression, not applicable or unspecified
CPT/HCPCS: 36415; 80053; 82565; 82570; 83735; 84156; 84450; 84550; 85025; 86850; 86900; 86901; A9270; J7120; J3475

== ENCOUNTER 2023-07-21 08:57 | Outpatient (CLI) | payer OTHER ==
--- NOTE | 2023-07-22 08:41 | Ultrasound Report ---
PROCEDURE: Pelvic w/Transvaginal INDICATIONS: IUD INSERTION TECHNIQUE: Real-time scanning was performed of the pelvic organs, with image documentation. Additional endovagi nal scanning was necessary due to incomplete visualization of the adnexal and endometrial structures by transabdominal scanning. COMPARISON: None. FINDINGS: Uterus: Uterus is anteverted and normal in size at 7.8 x 4.3 x 5.4 cm. The myometrium is homogeneou s. The endometrium measures 3 mm in combined thickness. An intrauterine device is seen in the lower uterine segment and embedded in the posterior myometrium approximately 2.5 cm from the endometrial f undus (series 1, image 28). The IUD extends to the posterior serosa. Ovaries: The right ovary measures 2.3 x 1.1 x 1.1 cm, with a calculated ovarian volume of 1.46 cc. The left ovary measures 2.5 x 1.7 x 1.9 cm, with a calculated ovarian volume of 4.02 cc. The ovaries have a normal sonographic appearance. Less than 12 follicles can be seen in each ovary. There is a dominant left ovarian follicle. No adnexal masses are seen. No cystic lesions measuring greater than 3 cm. Other: Trace free fluid is seen at the level of the cervix. IMPRESSION: 1. Malpositioned intrauterine device in the lower uterine segment embedded in the posterior myometriu m extending to the serosa. Perforation cannot be excluded. 2. Heterogeneous myometrium which is nonspecific and may be seen in the setting of uterine adenomyosi s. 3. Trace pelvic free fluid. Reviewed by: Indu Israel MD on 07/21/2023 5:46 PM PDT Approved by: Indu Israel MD on 07/21/2023 5:46 PM PDT Station ID: [id number]
== END 2023-07-21 08:58 | disposition home or self-care (01) ==
LOC: DI 08:57
PROVIDERS: ATTEND Obstetrics & Gynecology
DX: T83.32XA Displacement of intrauterine contraceptive device, initial encounter (principal)